=== PATIENT | male | born 1975 | race Caucasian/White ===

== ENCOUNTER 2020-12-23 23:17 | Inpatient (IN) ==
[2020-12-24] MEDS ORDERED: 0.9 % Sodium Chloride 500 ML IVC ONE (00:08)
[2020-12-24 00:26] LABS: Basophils # 0.1 K/mcL (0.0-0.2); Basophils % 0.6 %; Eosinophils # 0.2 K/mcL (0.0-0.6); Eosinophils % 2.3 %; Hematocrit 51.1 % (37.5-50.1); Hemoglobin 16.6 g/dL (12.9-16.9); Immature Granulocytes % 0.1 % (0-4); Lymphocytes # 2.2 K/mcL (0.6-4.6); Lymphocytes % 27.6 %; Mean Corpuscular HGB Conc 32.5 g/dL (31.6-35.5); Mean Corpuscular Hemoglobin 29.8 pg (28.0-33.3); Mean Corpuscular Volume 91.7 fL (83.0-100.0); Mean Platelet Volume 12.8 fL (9.4-12.4); Monocytes % 11.7 %; Neutrophils # 4.7 K/mcL (1.6-8.9); Platelet Count 123 K/mcL (140-400); Red Blood Count 5.57 M/mcL (4.19-5.50); Red Cell Distribution Width 18.3 % (11.5-14.5); Segmented Neutrophils % 57.7 %; White Blood Count 8.1 K/mcL (4.3-11.1)
[2020-12-24 00:47] LABS: Albumin 3.6 g/dL (3.5-5.7); Albumin/Globulin Ratio 1.2 (1.1-2.2); Calcium 7.8 mg/dL (8.6-10.3); Potassium 4.4 mEq/L (3.5-5.1); Total Protein 6.6 g/dL (6.4-8.9); Troponin I 0.11 ng/mL (< 0.04)
[2020-12-24 01:18] LABS: INR 1.3; Prothrombin Time 14.8 Seconds (9.4-12.1)
[2020-12-24 01:50] LABS: Influenza A PCR Negative (Negative); Influenza B PCR Negative (Negative); Resp. Syncytial Virus PCR Negative (Negative)
[2020-12-24 02:01] LABS: SARS-CoV-2 by PCR (In House) Negative (Negative)
[2020-12-24] MEDS ORDERED: 0.9 % Sodium Chloride 250 ML IVC ONE ×2 (03:04→08:08)
[2020-12-24] MEDS ORDERED: Naloxone 0.4 MG/ML INJ IVP PRN (03:08)
[2020-12-24 04:20] LABS: Eosinophils % 2.7 %; Immature Granulocytes % 0.3 % (0-4)
[2020-12-24 04:22] LABS: Basophils % 0.5 %; Eosinophils # 0.2 K/mcL (0.0-0.6); Hematocrit 52.9 % (37.5-50.1); Hemoglobin 17.6 g/dL (12.9-16.9); Immature Platelets 9.7 % (1.1-6.1); Lymphocytes % 29.2 %; Mean Corpuscular HGB Conc 33.3 g/dL (31.6-35.5); Mean Corpuscular Hemoglobin 30.7 pg (28.0-33.3); Mean Corpuscular Volume 92.3 fL (83.0-100.0); Monocytes # 0.9 K/mcL (0.0-1.3); Monocytes % 11.2 %; Neutrophils # 4.3 K/mcL (1.6-8.9); Platelet Count 102 K/mcL (140-400); Red Blood Count 5.73 M/mcL (4.19-5.50); Red Cell Distribution Width 18.7 % (11.5-14.5); Segmented Neutrophils % 56.1 %; White Blood Count 7.7 K/mcL (4.3-11.1)
[2020-12-24 04:27] LABS: Lymphocytes # 2.3 K/mcL (0.6-4.6)
[2020-12-24 04:52] LABS: Albumin 3.6 g/dL (3.5-5.7); Albumin/Globulin Ratio 1.3 (1.1-2.2); Bilirubin,Total 0.9 mg/dL (0.3-1.0); Calcium 7.8 mg/dL (8.6-10.3); Chol/HDL Ratio 4.8 (0-4.9); Globulin 2.8 g/dL (2.4-3.5); Magnesium 2.1 mg/dL (1.6-2.6); Phosphorous 8.5 mg/dL (2.7-4.5); Potassium 4.5 mEq/L (3.5-5.1); Total Protein 6.4 g/dL (6.4-8.9); Troponin I 0.1 ng/mL (< 0.04)
[2020-12-24 05:50] LABS: Estimated Average Glucose 123 mg/dl; Hemoglobin A1C 5.9 %
[2020-12-24] MEDS ORDERED: *HR* Heparin 5,000 UNIT/ML VIAL SQ SCH (06:00)
[2020-12-24] MEDS: Aspirin Enteric Coated 81 MG Tablet PO SCH (08:49)
[2020-12-24] MEDS ORDERED: *HR* Heparin 5,000 UNIT/ML VIAL IVP ONE (10:07)
[2020-12-24] MEDS ORDERED: *HR* Heparin 5,000 UNIT/ML VIAL IVP PRN ×2 (10:07)
[2020-12-24] MEDS ORDERED: Isovue-370 500 ML BOTTLE IVP ONE (10:19)
[2020-12-24 11:31] LABS: Heparin anti-factor XA UFH < 0.04 IU/mL (0.30-0.70); INR 1.2; Prothrombin Time 13.7 Seconds (9.4-12.1)
[2020-12-24 11:43] LABS: Mean Corpuscular Volume 92.8 fL (83.0-100.0)
[2020-12-24 11:44] LABS: Hematocrit 53.2 % (37.5-50.1); Immature Platelets 12.3 % (1.1-6.1); Mean Corpuscular Hemoglobin 29.7 pg (28.0-33.3); Mean Platelet Volume 12.3 fL (9.4-12.4); Red Blood Count 5.73 M/mcL (4.19-5.50); Red Cell Distribution Width 18.5 % (11.5-14.5); White Blood Count 6.7 K/mcL (4.3-11.1)
[2020-12-24] MEDS: Heparin 25,000UNIT/250ML 1/2NS 25,000 UNIT/250 ML IV.SOLN IVC SCH (12:06)
[2020-12-24] MEDS ORDERED: Acetaminophen IV 1,000 MG/100 ML BAG IVPB PRN (15:09)
[2020-12-24 17:28] LABS: Hepatitis B Surface Antibody 737.57 mIU/mL
[2020-12-24 17:39] LABS: Hepatitis B Surface Antigen Nonreactive (Nonreactive)
[2020-12-24] MEDS: Nicotine 21 MG PATCH.TD24 TD SCH (17:45)
[2020-12-24] MEDS ORDERED: Gabapentin 100 MG CAPSULE PO ONE (18:00)
[2020-12-24] MEDS: Albumin Human 5% 12.5 GM/250 ML IV.SOLN IVC SCH ×2 (19:22→23:45)
[2020-12-25 05:16] LABS: Calcium 8.1 mg/dL (8.6-10.3); Potassium 5.1 mEq/L (3.5-5.1)
[2020-12-25] MEDS ORDERED: 0.9 % Sodium Chloride 250 ML IVC PRN (07:27)
[2020-12-25] MEDS ORDERED: 0.9 % Sodium Chloride 1,000 ML PRIME SCH (07:30)
[2020-12-25] MEDS: Aspirin Enteric Coated 81 MG Tablet PO SCH (08:53)
[2020-12-25] MEDS: Nicotine 21 MG PATCH.TD24 TD SCH (08:53)
[2020-12-25] MEDS: Ondansetron 4 MG/2 ML VIAL IVP PRN (08:53)
[2020-12-25] MEDS: Heparin 25,000UNIT/250ML 1/2NS 25,000 UNIT/250 ML IV.SOLN IVC SCH (09:14)
[2020-12-25] MEDS ORDERED: Gabapentin 100 MG CAPSULE PO SCH (18:00)
[2020-12-26] MEDS ORDERED: 0.9 % Sodium Chloride 500 ML IVC ONE (04:16)
[2020-12-26] MEDS: Albumin 25% 25gram/100mL 25 GM/100 ML IV.SOLN IVC SCH ×4 (05:17→11:31)
[2020-12-26 06:06] LABS: Calcium 8.4 mg/dL (8.6-10.3); Potassium 4.5 mEq/L (3.5-5.1)
[2020-12-26] MEDS: Heparin 25,000UNIT/250ML 1/2NS 25,000 UNIT/250 ML IV.SOLN IVC SCH (06:45)
[2020-12-26] MEDS: Nicotine 21 MG PATCH.TD24 TD SCH (09:43)
[2020-12-26] MEDS: Aspirin Enteric Coated 81 MG Tablet PO SCH (09:43)
[2020-12-26] MEDS ORDERED: *HR* Heparin 10,000 UNIT/10 ML VIAL ONE (13:58)
[2020-12-26] MEDS ORDERED: 0.9 % Sodium Chloride 2,000 ML ONE (13:58)
[2020-12-26] MEDS ORDERED: *HR* Midazolam HCl 2 MG/2 ML VIAL ONE ×2 (13:58→15:20)
[2020-12-26] MEDS ORDERED: Heparin 1,000 UNITS/500 mL 500 ML ONE (13:58)
[2020-12-26] MEDS ORDERED: *HR* FentaNYL (PF) 100 MCG/2 ML VIAL ONE (13:58)
[2020-12-26] MEDS ORDERED: Isovue-300 200 mL Infus..BTL ONE (13:59)
[2020-12-26] MEDS ORDERED: *HR* HYDROcodone/Acet 5/325 mg TABLET PO PRN (16:14)
[2020-12-26] MEDS ORDERED: Acetaminophen 325 MG TABLET PO PRN (16:14)
[2020-12-27 01:37] LABS: Hemoglobin 16.1 g/dL (12.9-16.9)
[2020-12-27 01:39] LABS: Basophils # 0.1 K/mcL (0.0-0.2); Basophils % 1.1 %; Eosinophils # 0.2 K/mcL (0.0-0.6); Eosinophils % 3.4 %; Hematocrit 51.5 % (37.5-50.1); Immature Granulocytes % 0.3 % (0-4); Mean Corpuscular HGB Conc 31.3 g/dL (31.6-35.5); Mean Corpuscular Hemoglobin 29.4 pg (28.0-33.3); Mean Corpuscular Volume 94.1 fL (83.0-100.0); Mean Platelet Volume 12.3 fL (9.4-12.4); Monocytes # 0.9 K/mcL (0.0-1.3); Monocytes % 12.3 %; Neutrophils # 3.8 K/mcL (1.6-8.9); Platelet Count 84 K/mcL (140-400); Red Blood Count 5.47 M/mcL (4.19-5.50); Red Cell Distribution Width 18.2 % (11.5-14.5); Segmented Neutrophils % 53.9 %
[2020-12-27 01:55] LABS: Calcium 8.3 mg/dL (8.6-10.3); Potassium 4.7 mEq/L (3.5-5.1)
[2020-12-27 01:56] LABS: Magnesium 2.2 mg/dL (1.6-2.6); Phosphorous 8.8 mg/dL (2.7-4.5)
[2020-12-27] MEDS: Heparin 25,000UNIT/250ML 1/2NS 25,000 UNIT/250 ML IV.SOLN IVC SCH (02:00)
[2020-12-27] MEDS ORDERED: 0.9 % Sodium Chloride 2,000 ML ONE (06:55)
[2020-12-27] MEDS ORDERED: 0.9 % Sodium Chloride 250 ML IVC PRN (07:06)
[2020-12-27] MEDS ORDERED: Albumin 25% 25gram/100mL 25 GM/100 ML IV.SOLN IVPB PRN ×2 (07:06→20:53)
[2020-12-27] MEDS ORDERED: 0.9 % Sodium Chloride 1,000 ML PRIME SCH ×2 (07:15→20:53)
[2020-12-27] MEDS: Ondansetron 4 MG/2 ML VIAL IVP PRN (07:36)
[2020-12-27] MEDS: Aspirin Enteric Coated 81 MG Tablet PO SCH (07:36)
[2020-12-27] MEDS: Nicotine 21 MG PATCH.TD24 TD SCH (07:37)
[2020-12-27] MEDS ORDERED: Nitroglycerin 1 INCH/GM PACKET TP SCH (09:00)
[2020-12-27] MEDS ORDERED: Heparin 1,000 UNITS/500 mL 1,000 ML ONE (12:37)
[2020-12-27] MEDS ORDERED: Protamine Sulfate 50 MG/5 ML VIAL IVP ONE (12:37)
[2020-12-27] MEDS ORDERED: Heparin 1,000 UNITS/500 mL 0 ML ONE (13:16)
[2020-12-27] MEDS ORDERED: *HR* Rocuronium Bromide 50 MG/5 ML VIAL ONE ×2 (13:17→15:18)
[2020-12-27] MEDS ORDERED: *HR* Propofol 200 MG/20 ML VIAL IVP ONE (13:17)
[2020-12-27] MEDS ORDERED: Lidocaine -MPF 2% 2 ML VIAL ONE (13:17)
[2020-12-27] MEDS ORDERED: Lidocaine HCL 4 ML Topical Solution (Laryng-O-Jet Kit Sterile Pak) TP ONE (13:17)
[2020-12-27] MEDS ORDERED: *HR* Midazolam HCl 2 MG/2 ML VIAL ONE (13:17)
[2020-12-27] MEDS ORDERED: *HR* FentaNYL (PF) 100 MCG/2 ML VIAL ONE (13:17)
[2020-12-27] MEDS ORDERED: *HR* Succinylcholine 200 MG/10 ML VIAL IVP ONE (13:17)
[2020-12-27] MEDS ORDERED: Ondansetron 4 MG/2 ML VIAL ONE (13:17)
[2020-12-27] MEDS ORDERED: *HR* Phenylephrine 10 MG/ML VIAL ONE ×3 (13:20→19:22)
[2020-12-27] MEDS ORDERED: *HR* Remifentanil 1 MG VIAL IVP ONE ×3 (13:20→17:35)
[2020-12-27] MEDS ORDERED: *HR* Vasopressin 20 UNIT/ML VIAL ONE (13:30)
[2020-12-27] MEDS ORDERED: CeFAZolin 2 GM/120 ML BAG IVPB ONE (14:30)
[2020-12-27 15:43] LABS: ABG Base Excess -6 mEq/L (-2 to 3); ABG Chloride 112 mEq/L (98-107); ABG Glucose 38 mg/dL (60-95); ABG HCO3 18 mEq/L (21-27); ABG Ionized Calcium 0.46 mmol/L (1.15-1.35); ABG Oxygen Saturation 100 % (95-98); ABG PCO2 28 mmHg (35-45); ABG PO2 273 mmHg (85-104); ABG TCO2 18 mEq/L (20-26)
[2020-12-27] MEDS ORDERED: Albumin Human 5% 0 GM/0 ML IV.SOLN ONE (15:48)
[2020-12-27] MEDS ORDERED: *HR* Dextrose 50 % in Water (Vial) 50 ML VIAL ONE (15:48)
[2020-12-27] MEDS ORDERED: Calcium Gluconate 1,000 MG/10 ML VIAL ONE (15:49)
[2020-12-27 15:52] LABS: ABG Base Excess -6 mEq/L (-2 to 3); ABG Chloride 111 mEq/L (98-107); ABG Glucose 42 mg/dL (60-95); ABG HCO3 17 mEq/L (21-27); ABG Ionized Calcium 0.49 mmol/L (1.15-1.35); ABG Oxygen Saturation 100 % (95-98); ABG PCO2 26 mmHg (35-45); ABG PH 7.42 pH Units (7.32-7.45); ABG PO2 262 mmHg (85-104); ABG TCO2 18 mEq/L (20-26)
[2020-12-27] MEDS ORDERED: Potassium Chloride Elixir 20 MEQ/15 ML UDC GTUBE ONE ×2 (16:00→20:53)
[2020-12-27 16:21] LABS: ABG Base Excess 1 mEq/L (-2 to 3); ABG Chloride 94 mEq/L (98-107); ABG Glucose 175 mg/dL (60-95); ABG HCO3 26 mEq/L (21-27); ABG Ionized Calcium 1.08 mmol/L (1.15-1.35); ABG Oxygen Saturation 100 % (95-98); ABG PCO2 40 mmHg (35-45); ABG PH 7.42 pH Units (7.32-7.45); ABG PO2 189 mmHg (85-104); ABG TCO2 27 mEq/L (20-26)
[2020-12-27] MEDS ORDERED: *HR* Heparin 5,000 UNIT/ML VIAL ONE ×2 (16:49→17:50)
[2020-12-27 17:32] LABS: ABG Base Excess 1 mEq/L (-2 to 3); ABG Chloride 95 mEq/L (98-107); ABG Glucose 84 mg/dL (60-95); ABG HCO3 25 mEq/L (21-27); ABG Ionized Calcium 0.92 mmol/L (1.15-1.35); ABG Oxygen Saturation 100 % (95-98); ABG PCO2 36 mmHg (35-45); ABG PH 7.45 pH Units (7.32-7.45); ABG PO2 302 mmHg (85-104); ABG TCO2 26 mEq/L (20-26)
[2020-12-27 18:59] LABS: ABG Base Excess 1 mEq/L (-2 to 3); ABG Chloride 95 mEq/L (98-107); ABG Glucose 58 mg/dL (60-95); ABG HCO3 26 mEq/L (21-27); ABG Ionized Calcium 0.92 mmol/L (1.15-1.35); ABG Oxygen Saturation 100 % (95-98); ABG PCO2 40 mmHg (35-45); ABG PH 7.42 pH Units (7.32-7.45); ABG PO2 363 mmHg (85-104); ABG TCO2 27 mEq/L (20-26)
[2020-12-27] MEDS ORDERED: *HR* HYDROMORPHONE 2 MG/ML VIAL ONE (19:45)
[2020-12-27] MEDS ORDERED: Sugammadex Sodium 200 MG/2 ML VIAL IV ONE (19:47)
[2020-12-27] MEDS ORDERED: Acetaminophen 325 MG TABLET PO PRN (20:53)
[2020-12-27] MEDS ORDERED: Naloxone 0.4 MG/ML INJ IVP PRN ×2 (20:53)
[2020-12-27] MEDS: 0.9 % Sodium Chloride 250 ML IVC PRN ×2 (21:36→21:55)
[2020-12-27] MEDS: Acetaminophen IV 1,000 MG/100 ML BAG IVPB PRN (21:37)
[2020-12-27] MEDS: Gabapentin 100 MG CAPSULE PO SCH (21:38)
[2020-12-28] MEDS: CeFAZolin 2 GM/120 ML BAG IVPB SCH ×2 (00:09→08:05)
[2020-12-28 02:42] LABS: Eosinophils % 0.5 %; Red Blood Count 4.84 M/mcL (4.19-5.50); Red Cell Distribution Width 18.1 % (11.5-14.5)
[2020-12-28 02:44] LABS: Basophils # 0.1 K/mcL (0.0-0.2); Basophils % 0.6 %; Hematocrit 46.2 % (37.5-50.1); Hemoglobin 14.4 g/dL (12.9-16.9); Immature Granulocytes % 0.6 % (0-4); Immature Platelets 13.2 % (1.1-6.1); Lymphocytes # 1.1 K/mcL (0.6-4.6); Lymphocytes % 14.1 %; Mean Corpuscular HGB Conc 31.2 g/dL (31.6-35.5); Mean Corpuscular Hemoglobin 29.8 pg (28.0-33.3); Mean Corpuscular Volume 95.5 fL (83.0-100.0); Mean Platelet Volume 13.4 fL (9.4-12.4); Monocytes # 0.7 K/mcL (0.0-1.3); Monocytes % 8.4 %; Neutrophils # 6.1 K/mcL (1.6-8.9); Platelet Count 77 K/mcL (140-400); Segmented Neutrophils % 75.8 %
[2020-12-28 02:58] LABS: Calcium 8.3 mg/dL (8.6-10.3); Magnesium 1.9 mg/dL (1.6-2.6); Phosphorous 7.3 mg/dL (2.7-4.5); Potassium 5.7 mEq/L (3.5-5.1)
[2020-12-28] MEDS: Nicotine 21 MG PATCH.TD24 TD SCH (08:04)
[2020-12-28] MEDS: Aspirin Enteric Coated 81 MG Tablet PO SCH (08:04)
[2020-12-28] MEDS: Acetaminophen IV 1,000 MG/100 ML BAG IVPB PRN ×2 (08:50→18:00)
[2020-12-28] MEDS ORDERED: 0.9 % Sodium Chloride 250 ML IVC PRN (11:59)
[2020-12-28] MEDS ORDERED: Ipratropium/Albuterol Neb 3 ML IH PRN (12:04)
[2020-12-28] MEDS: *HR* HYDROcodone/Acet 5/325 mg TABLET PO PRN ×2 (13:10→22:51)
[2020-12-28] MEDS ORDERED: Albumin 25% 25gram/100mL 25 GM/100 ML IV.SOLN ONE (14:57)
[2020-12-28] MEDS: Ipratropium/Albuterol Neb 3 ML IH SCH ×2 (16:06→21:17)
[2020-12-28] MEDS: Budesonide/Formoterol 160/4.5 1 PUFF INH IH SCH (21:17)
[2020-12-29 02:59] LABS: Hematocrit 46.1 % (37.5-50.1); Hemoglobin 14.9 g/dL (12.9-16.9); Mean Corpuscular HGB Conc 32.3 g/dL (31.6-35.5); Mean Corpuscular Hemoglobin 30.3 pg (28.0-33.3); Nucleated Red Blood Cells 0.2 /100 WBC (0); Red Cell Distribution Width 18.4 % (11.5-14.5)
[2020-12-29 03:01] LABS: Basophils % 0.4 %; Eosinophils # 0.2 K/mcL (0.0-0.6); Eosinophils % 2.4 %; Immature Granulocytes % 0.4 % (0-4); Immature Platelets 11.8 % (1.1-6.1); Lymphocytes # 1.8 K/mcL (0.6-4.6); Lymphocytes % 19.7 %; Mean Corpuscular Volume 93.7 fL (83.0-100.0); Red Blood Count 4.92 M/mcL (4.19-5.50); Segmented Neutrophils % 66.1 %; White Blood Count 9.1 K/mcL (4.3-11.1)
[2020-12-29 03:02] LABS: Platelet Count 86 K/mcL (140-400)
[2020-12-29 03:21] LABS: Calcium 9.1 mg/dL (8.6-10.3); Magnesium 2.1 mg/dL (1.6-2.6); Phosphorous 6.1 mg/dL (2.7-4.5); Potassium 4.5 mEq/L (3.5-5.1)
[2020-12-29] MEDS: Ipratropium/Albuterol Neb 3 ML IH SCH ×4 (03:33→22:26)
[2020-12-29] MEDS: *HR* HYDROcodone/Acet 5/325 mg TABLET PO PRN ×3 (04:47→14:27)
[2020-12-29] MEDS: Aspirin Enteric Coated 81 MG Tablet PO SCH (08:31)
[2020-12-29] MEDS: Nicotine 21 MG PATCH.TD24 TD SCH (08:31)
[2020-12-29] MEDS: Acetaminophen IV 1,000 MG/100 ML BAG IVPB PRN (08:39)
[2020-12-29] MEDS: Ondansetron 4 MG/2 ML VIAL IVP PRN (08:52)
[2020-12-29] MEDS: Budesonide/Formoterol 160/4.5 1 PUFF INH IH SCH ×2 (10:12→22:26)
[2020-12-29] MEDS ORDERED: traZODone 50 MG TABLET PO PRN (11:48)
[2020-12-30] MEDS: *HR* HYDROcodone/Acet 5/325 mg TABLET PO PRN ×4 (02:32→20:45)
[2020-12-30] MEDS: Ipratropium/Albuterol Neb 3 ML IH SCH ×4 (03:55→22:19)
[2020-12-30 04:56] LABS: Red Blood Count 4.98 M/mcL (4.19-5.50)
[2020-12-30 04:57] LABS: Basophils # 0.1 K/mcL (0.0-0.2); Basophils % 0.6 %; Eosinophils # 0.2 K/mcL (0.0-0.6); Eosinophils % 2.3 %; Hematocrit 47.7 % (37.5-50.1); Immature Granulocytes % 0.4 % (0-4); Immature Platelets 12.5 % (1.1-6.1); Lymphocytes % 23.2 %; Mean Corpuscular HGB Conc 31.4 g/dL (31.6-35.5); Mean Corpuscular Hemoglobin 30.1 pg (28.0-33.3); Mean Corpuscular Volume 95.8 fL (83.0-100.0); Mean Platelet Volume 13.8 fL (9.4-12.4); Monocytes # 0.9 K/mcL (0.0-1.3); Monocytes % 10.7 %; Neutrophils # 5.4 K/mcL (1.6-8.9); Nucleated Red Blood Cells 0.2 /100 WBC (0); Red Cell Distribution Width 18.1 % (11.5-14.5); Segmented Neutrophils % 62.8 %; White Blood Count 8.6 K/mcL (4.3-11.1)
[2020-12-30 05:03] LABS: Platelet Count 88 K/mcL (140-400)
[2020-12-30 05:13] LABS: Magnesium 2.1 mg/dL (1.6-2.6); Potassium 5.3 mEq/L (3.5-5.1)
[2020-12-30] MEDS ORDERED: 0.9 % Sodium Chloride 250 ML IVC PRN (07:56)
[2020-12-30] MEDS ORDERED: Albumin 25% 25gram/100mL 25 GM/100 ML IV.SOLN IVPB ONE (08:27)
[2020-12-30] MEDS: Gabapentin 100 MG CAPSULE PO SCH (08:34)
[2020-12-30] MEDS: Aspirin Enteric Coated 81 MG Tablet PO SCH (08:34)
[2020-12-30] MEDS: Multivit/Ca/Min/Fe/FA 1 TAB TABLET PO SCH (08:34)
[2020-12-30] MEDS: Nicotine 21 MG PATCH.TD24 TD SCH (08:35)
[2020-12-30] MEDS ORDERED: Albumin 25% 25gram/100mL 25 GM/100 ML IV.SOLN ONE (08:59)
[2020-12-30] MEDS: Budesonide/Formoterol 160/4.5 1 PUFF INH IH SCH ×2 (11:40→22:19)
[2020-12-30] MEDS: Nicotine 2 MG GUM BC SCH ×3 (13:16→14:02)
[2020-12-30] MEDS: *HR* Heparin 5,000 UNIT/ML VIAL SQ SCH (16:54)
[2020-12-30] MEDS ORDERED: Gabapentin 100 MG CAPSULE PO SCH (18:00)
[2020-12-31 02:11] LABS: Basophils # 0.1 K/mcL (0.0-0.2); Basophils % 0.9 %; Eosinophils # 0.3 K/mcL (0.0-0.6); Eosinophils % 3.1 %; Hematocrit 45.7 % (37.5-50.1); Hemoglobin 15.1 g/dL (12.9-16.9); Immature Granulocytes % 0.3 % (0-4); Immature Platelets 12.7 % (1.1-6.1); Lymphocytes # 2.3 K/mcL (0.6-4.6); Lymphocytes % 25.3 %; Mean Corpuscular Hemoglobin 31.1 pg (28.0-33.3); Mean Platelet Volume 12.6 fL (9.4-12.4); Monocytes # 1.1 K/mcL (0.0-1.3); Monocytes % 12.4 %; Neutrophils # 5.3 K/mcL (1.6-8.9); Red Blood Count 4.86 M/mcL (4.19-5.50); White Blood Count 9.1 K/mcL (4.3-11.1)
[2020-12-31 02:12] LABS: Platelet Count 93 K/mcL (140-400)
[2020-12-31 02:29] LABS: Calcium 9.2 mg/dL (8.6-10.3); Magnesium 2.3 mg/dL (1.6-2.6); Phosphorous 6.3 mg/dL (2.7-4.5); Potassium 4.6 mEq/L (3.5-5.1)
[2020-12-31] MEDS: Ipratropium/Albuterol Neb 3 ML IH SCH ×4 (03:32→22:25)
[2020-12-31] MEDS: *HR* Heparin 5,000 UNIT/ML VIAL SQ SCH (06:53)
[2020-12-31] MEDS: Ondansetron 4 MG/2 ML VIAL IVP PRN (07:32)
[2020-12-31] MEDS: Aspirin Enteric Coated 81 MG Tablet PO SCH (09:10)
[2020-12-31] MEDS: Multivit/Ca/Min/Fe/FA 1 TAB TABLET PO SCH (09:10)
[2020-12-31] MEDS: Nicotine 21 MG PATCH.TD24 TD SCH (10:20)
[2020-12-31] MEDS: Budesonide/Formoterol 160/4.5 1 PUFF INH IH SCH ×2 (10:36→22:25)
[2020-12-31] MEDS: *HR* HYDROcodone/Acet 5/325 mg TABLET PO PRN (11:48)
[2020-12-31] MEDS ORDERED: Norepinephrine 4 MG/254 ML 0.9% NaCL IVC ONE (13:09)
[2020-12-31] MEDS ORDERED: CeFAZolin 2 GM/120 ML BAG IVPB ONE (15:18)
[2020-12-31] MEDS ORDERED: Protamine Sulfate 50 MG/5 ML VIAL IVP ONE (16:31)
[2020-12-31] MEDS ORDERED: Heparin 1,000 UNITS/500 mL 1,500 ML ONE ×2 (16:31→19:07)
[2020-12-31] MEDS ORDERED: Isovue-300 50ML VIAL ONE (16:32)
[2020-12-31] MEDS ORDERED: Ondansetron 4 MG/2 ML VIAL ONE (16:55)
[2020-12-31] MEDS ORDERED: Lidocaine HCL 4 ML Topical Solution (Laryng-O-Jet Kit Sterile Pak) TP ONE (16:55)
[2020-12-31] MEDS ORDERED: *HR* Midazolam HCl 2 MG/2 ML VIAL ONE ×2 (16:55→20:28)
[2020-12-31] MEDS ORDERED: *HR* Propofol 200 MG/20 ML VIAL IVP ONE ×2 (16:55→16:56)
[2020-12-31] MEDS ORDERED: *HR* Rocuronium Bromide 50 MG/5 ML VIAL ONE ×2 (16:55→20:55)
[2020-12-31] MEDS ORDERED: *HR* FentaNYL (PF) 100 MCG/2 ML VIAL ONE (16:55)
[2020-12-31] MEDS ORDERED: Lidocaine -MPF 2% 2 ML VIAL ONE (16:55)
[2020-12-31] MEDS ORDERED: *HR* OxyCODONE Immed Rel 5 MG TABLET PO PRN (17:11)
[2020-12-31] MEDS ORDERED: Ondansetron 4 MG/2 ML VIAL IVP PRN (17:11)
[2020-12-31] MEDS ORDERED: *HR* HYDROmorphone PF 0.5 MG/0.5 ML SYRINGE IVP PRN (17:11)
[2020-12-31] MEDS ORDERED: Promethazine 6.25 MG in Water for inj. (sterile) 20 ML IVPB PRN (17:11)
[2020-12-31] MEDS ORDERED: ceFAZolin 1,000 MG, Sodium Chloride IRRigation 1,000 ML IR ONE (17:30)
[2020-12-31] MEDS ORDERED: EPHEDrine 50 MG/ML VIAL ONE (17:57)
[2020-12-31] MEDS ORDERED: *HR* Heparin 5,000 UNIT/ML VIAL ONE (19:12)
[2020-12-31] MEDS ORDERED: Albumin Human 5% 25.0 GM/500 ML IV.SOLN ONE (20:29)
[2020-12-31] MEDS ORDERED: *HR* Norepinephrine 4 MG/4 ML VIAL IVC ONE (20:48)
[2020-12-31 20:54] LABS: VBG Base Excess -4 mEq/L; VBG Chloride 101 mEq/L (98-107); VBG Glucose 90 mg/dl (65-95); VBG HCO3 23 mEq/L (21-27); VBG Ionized Calcium 1.11 mmol/L (1.15-1.35); VBG Oxygen Saturation 86 %; VBG PCO2 47 mmHg (41-51); VBG PH 7.29 pH Units (7.32-7.42); VBG PO2 58 mmHg (25-50); VBG Total CO2 24 mEq/L
[2020-12-31] MEDS ORDERED: *HR* Vasopressin 20 UNIT/ML VIAL ONE (21:11)
[2020-12-31] MEDS ORDERED: *HR* Phenylephrine 10 MG/ML VIAL ONE (21:15)
[2020-12-31] MEDS ORDERED: *HR* Midazolam HCl 5 MG/5 ML VIAL IVP ONE (21:19)
[2020-12-31 21:24] LABS: VBG Base Excess -3 mEq/L; VBG Chloride 101 mEq/L (98-107); VBG Glucose 86 mg/dl (65-95); VBG HCO3 24 mEq/L (21-27); VBG Ionized Calcium 1.51 mmol/L (1.15-1.35); VBG Oxygen Saturation 86 %; VBG PCO2 49 mmHg (41-51); VBG PO2 56 mmHg (25-50); VBG Total CO2 26 mEq/L
[2020-12-31] MEDS: Phenylephrine 10 MG in 0.9 % Sodium Chloride 250 ML IVC SCH (22:00)
[2020-12-31] MEDS: Norepinephrine 4 MG/254 ML IV.SOLN IVC SCH (22:00)
[2020-12-31 22:04] LABS: VBG Base Excess -16 mEq/L; VBG Chloride 122 mEq/L (98-107); VBG Glucose 32 mg/dl (65-95); VBG HCO3 11 mEq/L (21-27); VBG Ionized Calcium 0.43 mmol/L (1.15-1.35); VBG Oxygen Saturation 69 %; VBG PCO2 28 mmHg (41-51); VBG PO2 43 mmHg (25-50); VBG Total CO2 12 mEq/L
[2020-12-31] MEDS ORDERED: Artificial Tears SOLN 15 ML BOTTLE BOTH EYES PRN (22:14)
[2020-12-31] MEDS ORDERED: Vasopressin 40 UNIT in D5% in Water 100 ML IVC SCH (22:15)
[2020-12-31] MEDS ORDERED: Chlorhexidine Rinse 15 ML MOUTHWASH MM SCH (22:15)
[2020-12-31 22:56] LABS: ABG Base Excess -7 mEq/L (-2 to 3); ABG HCO3 22 mEq/L (21-27); ABG Oxygen Saturation 99 % (95-98); ABG PCO2 56 mmHg (35-45); ABG PO2 156 mmHg (85-104); ABG TCO2 24 mEq/L (20-26); Blood Gas Modality AF; Blood Gas VT 500 cc
[2020-12-31] MEDS: FentaNYL (PF) 1,000 MCG/100 ML IV.SOLN IVC SCH (23:00)
[2020-12-31] MEDS ORDERED: Amiodarone Premix 150 MG/100 ML BAG IVPB ONE (23:20)
[2020-12-31] MEDS ORDERED: Amiodarone Premix 360 MG/200 ML BAG IVC ONE (23:20)
[2020-12-31] MEDS ORDERED: 0.9 % Sodium Chloride 1,000 ML ONE (23:37)
[2020-12-31 23:57] LABS: Alanine Aminotransferase < 3 Units/L (7-52); Albumin 3.9 g/dL (3.5-5.7); Albumin/Globulin Ratio 1.8 (1.1-2.2); Alkaline Phosphatase 151 Units/L (34-104); Aspartate Amino Transferase 19 Units/L (13-39); BUN/Creatinine Ratio 5 (6-26); Bilirubin,Total 1.4 mg/dL (0.3-1.0); Blood Urea Nitrogen 36 mg/dL (6-20); Calcium 9.2 mg/dL (8.6-10.3); Carbon Dioxide 19 mEq/L (23-29); Chloride 96 mEq/L (98-107); Globulin 2.2 g/dL (2.4-3.5); Glucose 112 mg/dL (70-105); Magnesium 2.4 mg/dL (1.6-2.6); Osmolality,Calculated 293 (280-300); Phosphorous 8.7 mg/dL (2.7-4.5); Potassium 6.3 mEq/L (3.5-5.1); Sodium 137 mEq/L (136-145); Total Protein 6.1 g/dL (6.4-8.9); eGFR For African Americans 10 (> 60); eGFR For Non-African Americans 9 (> 60)
[2021-01-01] MEDS ORDERED: Insulin Human Regular 10 UNIT in 0.9 % Sodium Chloride 10 ML IV ONE (01:30)
[2021-01-01] MEDS: Phenylephrine 10 MG in 0.9 % Sodium Chloride 250 ML IVC SCH (01:38)
[2021-01-01] MEDS: *HR* Heparin 5,000 UNIT/ML VIAL SQ SCH ×3 (02:06→17:50)
[2021-01-01] MEDS: *HR* Dextrose 50 % in Water (Vial) 50 ML VIAL IVP ONE ×2 (02:08→12:44)
[2021-01-01] MEDS: Artificial Tears SOLN 15 ML BOTTLE BOTH EYES SCH ×4 (02:10→23:09)
[2021-01-01] MEDS ORDERED: Phenylephrine 50 MG in 0.9 % Sodium Chloride 250 ML IVC SCH (02:30)
[2021-01-01] MEDS: Ipratropium/Albuterol Neb 3 ML IH SCH ×3 (03:37→21:14)
[2021-01-01 04:25] LABS: ABG Base Excess -9 mEq/L (-2 to 3); ABG HCO3 19 mEq/L (21-27); ABG Oxygen Saturation 100 % (95-98); ABG PCO2 43 mmHg (35-45); ABG PH 7.25 pH Units (7.32-7.45); ABG PO2 200 mmHg (85-104); ABG TCO2 20 mEq/L (20-26); Blood Gas Modality AF; Blood Gas VT 500 cc
[2021-01-01 05:02] LABS: VBG Ionized Calcium 1.08 mmol/L (1.15-1.35)
[2021-01-01 05:04] LABS: Basophils # 0.1 K/mcL (0.0-0.2); Basophils % 0.3 %; Eosinophils % 0.2 %; Hematocrit 51.6 % (37.5-50.1); Hemoglobin 16.3 g/dL (12.9-16.9); Immature Granulocytes % 1.3 % (0-4); Lymphocytes # 1.3 K/mcL (0.6-4.6); Lymphocytes % 6.2 %; Mean Corpuscular HGB Conc 31.6 g/dL (31.6-35.5); Mean Corpuscular Hemoglobin 30.6 pg (28.0-33.3); Mean Platelet Volume 12.5 fL (9.4-12.4); Monocytes # 1.8 K/mcL (0.0-1.3); Monocytes % 8.9 %; Neutrophils # 17.2 K/mcL (1.6-8.9); Nucleated Red Blood Cells 1.2 /100 WBC (0); Platelet Count 118 K/mcL (140-400); Red Blood Count 5.32 M/mcL (4.19-5.50); Red Cell Distribution Width 18.9 % (11.5-14.5); Segmented Neutrophils % 83.1 %
[2021-01-01] MEDS: Norepinephrine 4 MG/254 ML IV.SOLN IVC SCH ×3 (05:05→11:50)
[2021-01-01 05:12] LABS: Magnesium 2.4 mg/dL (1.6-2.6); Phosphorous 9.3 mg/dL (2.7-4.5)
[2021-01-01 05:14] LABS: White Blood Count 20.7 K/mcL (4.3-11.1)
[2021-01-01] MEDS ORDERED: SODIUM ZIRCONIUM CYCLOSILICATE 5 GM POWD.PACK PO ONE (05:30)
[2021-01-01] MEDS ORDERED: *HR* Phenylephrine 10 MG/ML VIAL ONE (07:05)
[2021-01-01] MEDS ORDERED: Naloxone 0.4 MG/ML INJ IVP PRN (07:39)
[2021-01-01] MEDS: Pantoprazole 40 MG VIAL IVP SCH (08:48)
[2021-01-01] MEDS ORDERED: Pantoprazole 40 MG VIAL IVP SCH (09:00)
[2021-01-01] MEDS ORDERED: Perflutren Lipid Microsphere 1.3 ML in 0.9 % Sodium Chloride 8.7 ML IVP PRN (09:02)
[2021-01-01] MEDS ORDERED: Phenylephrine 10 MG in 0.9 % Sodium Chloride 250 ML IVC SCH (09:45)
[2021-01-01 09:56] LABS: Calcium 10.1 mg/dL (8.6-10.3); Magnesium 2.7 mg/dL (1.6-2.6); Phosphorous 10.2 mg/dL (2.7-4.5); Potassium 7.4 mEq/L (3.5-5.1)
[2021-01-01] MEDS ORDERED: *HR* Alteplase (Cathflo) 2 MG VIAL IVP PRN (10:02)
[2021-01-01] MEDS ORDERED: 0.9 % Sodium Chloride 1,000 ML PRIME ONE ×2 (10:02)
[2021-01-01] MEDS ORDERED: *HR* Heparin 5,000 UNIT/ML VIAL IVP PRN (10:02)
[2021-01-01] MEDS ORDERED: 0.9 % Sodium Chloride 1,000 ML PRIME SCH (10:15)
[2021-01-01] MEDS ORDERED: D5 IVC SCH (10:30)
[2021-01-01] MEDS ORDERED: WATER IVC SCH (10:30)
[2021-01-01] MEDS ORDERED: SODIUM BICARBONATE IVC SCH (10:30)
[2021-01-01] MEDS: Vasopressin 40 UNIT in D5% in Water 100 ML IVC SCH (10:54)
[2021-01-01] MEDS: FentaNYL (PF) 1,000 MCG/100 ML IV.SOLN IVC SCH ×2 (10:59→13:07)
[2021-01-01] MEDS: Calcium Gluconate 1gm/50mL 1 GM/50 ML BAG IVPB SCH ×3 (11:05→12:59)
[2021-01-01] MEDS ORDERED: Amiodarone Premix 360 MG/200 ML BAG IVC SCH (11:16)
[2021-01-01] MEDS: Phenylephrine 50 MG in 0.9 % Sodium Chloride 250 ML IVC SCH ×3 (11:32→22:03)
[2021-01-01] MEDS ORDERED: Heparin 1,000 UNITS/500 mL 500 ML ONE (11:33)
[2021-01-01] MEDS ORDERED: *HR* Heparin 5,000 UNIT/ML VIAL ONE (11:33)
[2021-01-01 12:16] LABS: ABG Base Excess -12 mEq/L (-2 to 3); ABG HCO3 17 mEq/L (21-27); ABG Oxygen Saturation 96 % (95-98); ABG PCO2 52 mmHg (35-45); ABG PH 7.14 pH Units (7.32-7.45); ABG PO2 106 mmHg (85-104); ABG TCO2 19 mEq/L (20-26); Blood Gas VT 500 cc
[2021-01-01] MEDS ORDERED: *HR* Dextrose 50 % in Water (Vial) 50 ML VIAL ONE (12:20)
[2021-01-01] MEDS ORDERED: 0.9 % Sodium Chloride 250 ML ONE (12:34)
[2021-01-01] MEDS: PrismaSATE BGK 2/0 5,000 ML CRRT SCH ×4 (13:08→23:20)
[2021-01-01] MEDS: PrismaSATE BGK 4/2.5 5,000 ML CRRT SCH ×4 (13:09→23:19)
[2021-01-01] MEDS: Amiodarone Premix 360 MG/200 ML BAG IVC SCH (15:26)
[2021-01-01 16:04] LABS: ABG Base Excess -5 mEq/L (-2 to 3); ABG HCO3 22 mEq/L (21-27); ABG Oxygen Saturation 99 % (95-98); ABG PCO2 46 mmHg (35-45); ABG PH 7.28 pH Units (7.32-7.45); ABG PO2 134 mmHg (85-104); ABG TCO2 23 mEq/L (20-26); Blood Gas VT 500 cc
[2021-01-01] MEDS: Norepinephrine 8 MG in 0.9 % Sodium Chloride 250 ML IVC SCH (16:37)
[2021-01-01 19:04] LABS: VBG Ionized Calcium 0.95 mmol/L (1.15-1.35)
[2021-01-01 19:24] LABS: Calcium 9.2 mg/dL (8.6-10.3); Magnesium 2.5 mg/dL (1.6-2.6); Potassium 5.5 mEq/L (3.5-5.1)
[2021-01-01] MEDS: Chlorhexidine Rinse 15 ML MOUTHWASH MM SCH (20:03)
[2021-01-01] MEDS ORDERED: Calcium Chloride 2,000 MG in 0.9 % Sodium Chloride 100 ML IVPB ONE (20:41)
[2021-01-01] MEDS: Budesonide/Formoterol 160/4.5 1 PUFF INH IH SCH (21:13)
[2021-01-02] MEDS: Norepinephrine 8 MG in 0.9 % Sodium Chloride 250 ML IVC SCH ×2 (02:11→08:40)
[2021-01-02] MEDS: PrismaSATE BGK 4/2.5 5,000 ML CRRT SCH ×3 (02:47→09:53)
[2021-01-02] MEDS: PrismaSATE BGK 2/0 5,000 ML CRRT SCH ×3 (02:48→09:53)
[2021-01-02] MEDS: Artificial Tears SOLN 15 ML BOTTLE BOTH EYES SCH ×3 (03:04→12:28)
[2021-01-02] MEDS: Phenylephrine 50 MG in 0.9 % Sodium Chloride 250 ML IVC SCH ×2 (03:17→08:30)
[2021-01-02] MEDS: Ipratropium/Albuterol Neb 3 ML IH SCH ×2 (03:25→09:06)
[2021-01-02] MEDS: Vasopressin 40 UNIT in D5% in Water 100 ML IVC SCH (03:32)
[2021-01-02] MEDS: Amiodarone Premix 360 MG/200 ML BAG IVC SCH (03:37)
[2021-01-02 04:05] LABS: Hematocrit 53.3 % (37.5-50.1); Hemoglobin 16.5 g/dL (12.9-16.9); Mean Corpuscular Hemoglobin 30.2 pg (28.0-33.3); Mean Corpuscular Volume 97.4 fL (83.0-100.0); Mean Platelet Volume 12.9 fL (9.4-12.4); Monocytes % 3.8 %; Platelet Count 103 K/mcL (140-400); Red Blood Count 5.47 M/mcL (4.19-5.50); Red Cell Distribution Width 19.1 % (11.5-14.5); Segmented Neutrophils % 88.9 %; White Blood Count 18.5 K/mcL (4.3-11.1)
[2021-01-02 04:06] LABS: Basophils # 0.1 K/mcL (0.0-0.2); Basophils % 0.3 %; Lymphocytes # 1.1 K/mcL (0.6-4.6); Monocytes # 0.7 K/mcL (0.0-1.3); Neutrophils # 16.4 K/mcL (1.6-8.9); Nucleated Red Blood Cells 2.7 /100 WBC (0)
[2021-01-02 04:12] LABS: VBG Ionized Calcium 0.98 mmol/L (1.15-1.35)
[2021-01-02 04:21] LABS: ABG Base Excess -4 mEq/L (-2 to 3); ABG HCO3 21 mEq/L (21-27); ABG Oxygen Saturation 96 % (95-98); ABG PCO2 39 mmHg (35-45); ABG PH 7.34 pH Units (7.32-7.45); ABG PO2 84 mmHg (85-104); ABG TCO2 23 mEq/L (20-26); Blood Gas VT 500 cc
[2021-01-02 04:37] LABS: Alanine Aminotransferase 612 Units/L (7-52); Albumin 2.6 g/dL (3.5-5.7); Albumin/Globulin Ratio 1.9 (1.1-2.2); Alkaline Phosphatase 126 Units/L (34-104); Aspartate Amino Transferase > 3000 Units/L (13-39); BUN/Creatinine Ratio 7 (6-26); Bilirubin,Direct 2.1 mg/dL (0.0-0.2); Bilirubin,Indirect 1.1 mg/dL (0.0-1.0); Bilirubin,Total 3.2 mg/dL (0.3-1.0); Blood Urea Nitrogen 21 mg/dL (6-20); Calcium 6.3 mg/dL (8.6-10.3); Carbon Dioxide 16 mEq/L (23-29); Chloride 112 mEq/L (98-107); Globulin 1.4 g/dL (2.4-3.5); Glucose 79 mg/dL (70-105); Magnesium 1.6 mg/dL (1.6-2.6); Osmolality,Calculated 296 (280-300); Potassium 3.7 mEq/L (3.5-5.1); Sodium 142 mEq/L (136-145); eGFR For African Americans 29 (> 60); eGFR For Non-African Americans 24 (> 60)
[2021-01-02] MEDS: *HR* Heparin 5,000 UNIT/ML VIAL SQ SCH (05:00)
[2021-01-02] MEDS ORDERED: Calcium Chloride 2,000 MG in 0.9 % Sodium Chloride 100 ML IVPB ONE (05:13)
[2021-01-02 05:31] LABS: Amylase 194 Units/L (29-103); Lipase 600 Units/L (11-82)
[2021-01-02 05:48] LABS: INR 3.7
[2021-01-02] MEDS: FentaNYL (PF) 1,000 MCG/100 ML IV.SOLN IVC SCH (07:00)
[2021-01-02] MEDS ORDERED: Piperacillin/Tazobactam 3.375 GM in 0.9 % Sodium Chloride Mini Bag 100 ML IVPB SCH (08:00)
[2021-01-02] MEDS ORDERED: *HR* Dextrose 50 % in Water (Vial) 50 ML VIAL ONE (08:13)
[2021-01-02 08:15] LABS: ABG Base Excess 0 mEq/L (-2 to 3); ABG Chloride 96 mEq/L (98-107); ABG Glucose 55 mg/dL (60-95); ABG HCO3 24 mEq/L (21-27); ABG Ionized Calcium 0.91 mmol/L (1.15-1.35); ABG Oxygen Saturation 100 % (95-98); ABG PCO2 35 mmHg (35-45); ABG PH 7.44 pH Units (7.32-7.45); ABG PO2 339 mmHg (85-104); ABG TCO2 25 mEq/L (20-26)
[2021-01-02] MEDS: Pantoprazole 40 MG VIAL IVP SCH (08:27)
[2021-01-02] MEDS: Chlorhexidine Rinse 15 ML MOUTHWASH MM SCH (08:27)
[2021-01-02] MEDS: Budesonide/Formoterol 160/4.5 1 PUFF INH IH SCH (09:06)
[2021-01-02] MEDS ORDERED: Vancomycin 1,500 MG/265 ML IV.SOLN IVPB SCH (10:00)
[2021-01-02 11:17] VITALS: BP 83/56
== END 2021-01-02 13:10 | disposition short-term general hospital (02) | DRG 270 ==
LOC: 2NENU 23:17 → EMEROOARM 23:17 → 2NENU 12-24 03:41 → SUATTDRO 12-25 11:16 → 2NNU 12-27 19:06 → ICNU 12-31 21:31
PROVIDERS: ADMIT Family Medicine; ATTEND Internal Medicine